=== PATIENT | female | born 1990 | race African-American/Black ===

== ENCOUNTER 2023-06-08 17:34 | Emergency (ER) | payer MEDICAID ==
[~2023-06-08] VITALS: Ht 162.6 cm; Wt 75.0 kg
[2023-06-08 17:40] VITALS: O2SAT 99
[2023-06-08] MEDS ORDERED: HYDROCODONE/ACETAMINOPHEN 10/325MG TABLET PO ONE (18:45)
[2023-06-09] MEDS ORDERED: CYCL5TAB MT (02:11)
[2023-06-09] MEDS ORDERED: IBUP-2030 MT (02:11)
[2023-06-09] MEDS ORDERED: KETOROLAC 60MG/2ML VIAL IM ONE (02:30)
[2023-06-09 02:48] VITALS: BP 160/100
[2023-06-09 03:10] VITALS: PULSE 84; RESP 16
== END 2023-06-09 03:12 | disposition home or self-care (01) ==
LOC: ER 17:34
DX: S80.211A Abrasion, right knee, initial encounter (principal); M25.571 Pain in right ankle and joints of right foot; R51.9 Headache, unspecified; X58.XXXA Exposure to other specified factors, initial encounter; Y93.89 Activity, other specified; Y92.89 Other specified places as the place of occurrence of the external cause; Y99.8 Other external cause status
CPT/HCPCS: 99285; 73562; 73590; 73610; 70450; 72125; 96372; J1885